=== PATIENT | female | born 1955 | race Hispanic/Latino ===

== ENCOUNTER 2017-09-19 11:09 | Observation (INO) | payer OTHER ==
[~2017-09-19] VITALS: Ht 154.9 cm; Wt 92.1 kg
--- OUTSIDE RECORDS SUMMARY | 2017-09-19 11:12 | XMS REPORT ---
Author Author [facility] Address Unknown Phone Unavailable Care Team Providers Care Hvac Service Tech Name Role Phone SADIQ BREWSTER Unavailable Unavailable Problems This patient has no known problems. Allergies, Adverse Reactions, Alerts This patient has no known allergies or adverse reactions. Medications This patient has no known medications. Results Test Description Test Time Test Comments Text Results Atomic Results Result Comments US ABDOMEN COMPLETE [place] [address] Patient Name: MELISSA LENZ MR #: [id number] : 1955 Age/Sex: 61/F Req #: [id number] Adm Physician: Ordered by: SADIQ BREWSTER MD Report #: [id number] Location: US Room/Bed: Procedure: [id number] US/US ABDOMEN COMPLETE Exam Date: Exam Time: REPORT STATUS: Signed PROCEDURE: ABDOMINAL ULTRASOUND COMPARISON: None. INDICATIONS: Chronic Hep C FINDINGS: Hilton scale and color-flow Doppler ultrasound the abdomen was performed. Liver: 13.6 cm span. Mildly coarse, hyperechoic hepatic parenchyma which may be seen with steatosis or hepatitis. No mass or intrahepatic bile duct dilatation. Main portal vein 1.0 cm, nondilated, normal hepatopetal flow. Spleen: 11.7 cm span, no splenomegaly. Pancreas: Visualized portions unremarkable. Biliary: Surgical absence of the gallbladder. Common bile duct 0.6 cm, nondilated. Right kidney: 11.0 x 5.4 x 6.2 cm. Normal parenchymal echogenicity. No hydronephrosis or contour deforming mass. Left kidney: 10.8 x 6.4 x 5.9 cm. Normal parenchymal echogenicity. No hydronephrosis. There is a hypoechoic 1.5 cm mass, with enhanced through transmission, at the medial midportion of the left kidney. Visualization is compromised by body habitus, but the appearance is compatible with a cyst. Vessels: Portions of the aorta and IVC are obscured. Visualized portions unremarkable. CONCLUSION: 1. No sonographic evidence for acute abdominal pathology. 2. Hyperechoic hepatic parenchyma likely due to steatosis. The appearance may also reflect the presence of hepatitis. 3. Left renal cyst Dictated by: Bobby Tong M.D. on 01/26/2017 at 8:58 Electronically approved by: Bobby Tong M.D. on 01/26/2017 at 8:58 Dictated By: BOBBY TONG MD 7 COPY TO: SADIQ BREWSTER MD
[2017-09-19] MEDS ORDERED: SODIUM CHLORIDE 0.9% 1000ML 1,000 ML IV STA (11:19)
[2017-09-19] MEDS ORDERED: NITROGLYCERIN 2% OINT 1 GM PKT TOP ONE (11:30)
[2017-09-19] MEDS ORDERED: ASPIRIN 325 MG TAB PO ONE (11:30)
[2017-09-19] MEDS ORDERED: NITROGLYCERIN 0.4 MG SUBL SL ONE (11:30)
[2017-09-19 12:02] LABS: BASOPHILS % 0.7 % (0.0-1.0); EOSINOPHILS # (AUTO) 0.1 (0.0-0.4); EOSINOPHILS % 1.2 % (0.0-6.0); HEMATOCRIT 43.6 % (34.2-44.1); HEMOGLOBIN 15.6 g/dL (12.0-16.0); LYMPHOCYTES # (AUTO) 1.8 (1.0-3.2); LYMPHOCYTES % 30.6 % (18.0-39.1); MEAN CORPUSCULAR HEMOGLOBIN 30.7 pg (28-32); MEAN CORPUSCULAR HGB CONC 35.8 g/dL (31-35); MEAN CORPUSCULAR VOLUME 85.8 fL (81-99); MONOCYTES # (AUTO) 0.5 (0.2-0.8); MONOCYTES % 7.8 % (4.4-11.3); NEUTROPHILS # (AUTO) 3.5 (2.1-6.9); NEUTROPHILS % 59.4 % (38.7-80.0); PLATELET COUNT 143 x10e3/uL (140-360); RED BLOOD COUNT 5.08 x10e6/uL (3.6-5.1); RED CELL DISTRIBUTION WIDTH 13.1 % (11.7-14.4)
[2017-09-19 12:12] LABS: INR 1.06
[2017-09-19 12:24] LABS: ALBUMIN 4.2 g/dL (3.5-5.0); ALBUMIN/GLOBULIN RATIO 1.1 (0.8-2.0); ANION GAP 16.7 mmol/L (8-16); CALCIUM 10.5 mg/dL (8.4-10.2); CREATININE, SERUM 1.12 mg/dL (0.57-1.11); POTASSIUM 3.7 mmol/L (3.5-5.1)
[2017-09-19 12:30] LABS: CREATINE KINASE MB 0.6 ng/mL (0-5.0)
--- NOTE | 2017-09-19 12:40 | Diagnostic Imaging Report ---
Portable chest x-ray INDICATION: Pain COMPARISON: None FINDINGS: Frontal view of the chest obtained at 1218 hours. The cardiac silhouette is normal. Mild aortic ectasia. The pulmonary vascular markings are normal. The lungs demonstrate no mass or infiltrate. The costophrenic angles are sharp. There is no pneumothorax. The osseous structures are intact and normal in morphology. IMPRESSION: No acute cardiopulmonary process Signed by: Dr. Glenn Miramontes MD on 09/19/2017 12:36 PM
[2017-09-19] MEDS ORDERED: INSULIN LISPRO 100 UNIT/1 ML 3ML VIAL SQ NR (13:00)
[2017-09-19] MEDS ORDERED: DEXTROSE 50% SYRINGE 50 ML IV PRN (13:30)
[2017-09-19] MEDS ORDERED: SODIUM CHLORIDE FLUSH 10 ML SYR INJ PRN (13:30)
[2017-09-19] MEDS ORDERED: MORPHINE SULFATE 2 MG/ML SYR IV PRN (13:30)
[2017-09-19] MEDS ORDERED: NITROGLYCERIN 0.4 MG SUBL SL PRN (13:30)
[2017-09-19] MEDS ORDERED: ONDANSETRON HCL 4 MG ORAL DISINTEGRATING TAB SL PRN (13:45)
[2017-09-19] MEDS: ENOXAPARIN SODIUM INJ 100 MG/ML SYR SC SCH (14:08)
[2017-09-19] MEDS: FAMOTIDINE 20 MG TAB PO SCH (14:08)
[2017-09-19] MEDS: INSULIN REGULAR, HUMAN 100 UNIT/1 ML 3ML VIAL SQ SCH ×2 (17:30→20:12)
[2017-09-19 17:57] VITALS: BP 147/75
[2017-09-19 18:00] VITALS: BP 147/75
[2017-09-19] MEDS: NITROGLYCERIN 2% OINT 1 GM PKT TOP SCH (18:02)
[2017-09-19 19:46] LABS: CREATINE KINASE 29 IU/L (29-168)
[2017-09-19 20:00] VITALS: BP 157/81
[2017-09-20] VITALS: BP 119/61
[2017-09-20] MEDS: NITROGLYCERIN 2% OINT 1 GM PKT TOP SCH ×2 (00:40→06:20)
[2017-09-20] MEDS: FAMOTIDINE 20 MG TAB PO SCH ×2 (01:07→13:00)
[2017-09-20] MEDS: ENOXAPARIN SODIUM INJ 100 MG/ML SYR SC SCH (01:07)
[2017-09-20 01:23] LABS: CREATINE KINASE 25 IU/L (29-168)
[2017-09-20 04:00] VITALS: BP 149/69
[2017-09-20] MEDS ORDERED: ULTRAM50 MG PO (05:42)
[2017-09-20] MEDS ORDERED: FUROSEMIDE40 MG PO (05:42)
[2017-09-20] MEDS ORDERED: HYDROCHLOROTHIA25 MG (05:42)
[2017-09-20] MEDS ORDERED: VASOTEC10 M1 (05:42)
[2017-09-20] MEDS ORDERED: NEXIUM40 MG (05:42)
[2017-09-20] MEDS ORDERED: METFORMIN HCL500 MG PO (05:42)
[2017-09-20 06:41] LABS: BASOPHILS % 0.8 % (0.0-1.0); EOSINOPHILS # (AUTO) 0.1 (0.0-0.4); EOSINOPHILS % 1.9 % (0.0-6.0); HEMATOCRIT 38.1 % (34.2-44.1); HEMOGLOBIN 13.4 g/dL (12.0-16.0); LYMPHOCYTES # (AUTO) 1.8 (1.0-3.2); MEAN CORPUSCULAR HEMOGLOBIN 30.8 pg (28-32); MEAN CORPUSCULAR HGB CONC 35.2 g/dL (31-35); MEAN CORPUSCULAR VOLUME 87.6 fL (81-99); MONOCYTES # (AUTO) 0.4 (0.2-0.8); MONOCYTES % 8.5 % (4.4-11.3); NEUTROPHILS # (AUTO) 2.4 (2.1-6.9); PLATELET COUNT 123 x10e3/uL (140-360); RED BLOOD COUNT 4.35 x10e6/uL (3.6-5.1); RED CELL DISTRIBUTION WIDTH 13.1 % (11.7-14.4)
[2017-09-20 07:07] LABS: ANION GAP 16.6 mmol/L (8-16); BLOOD UREA NITROGEN 20 mg/dL (7-26); BUN/CREATININE RATIO 23 (6-25); CALCIUM 9.9 mg/dL (8.4-10.2); CARBON DIOXIDE 26 mmol/L (22-29); CHLORIDE 97 mmol/L (98-107); CHOL/HDL RATIO 4.1 (3.0-3.6); CHOLESTEROL 177 MD/DL (0-199); CREATININE, SERUM 0.87 mg/dL (0.57-1.11); EST GLOMERULAR FILTRATION RATE > 60 ML/MIN (60-); HDL CHOLESTEROL 43 MG/DL (40-60); LDL CHOLESTEROL 104 MG/DL (60-130); POTASSIUM 3.6 mmol/L (3.5-5.1); SODIUM 136 mmol/L (136-145); TRIGLYCERIDES 152 MG/DL (0-149)
[2017-09-20 07:17] LABS: GLUCOSE 410 mg/dL (74-118)
[2017-09-20 07:36] VITALS: BP 133/66
[2017-09-20] MEDS: ASPIRIN 81 MG ENTERIC COATED PO SCH (08:04)
[2017-09-20] MEDS: INSULIN REGULAR, HUMAN 100 UNIT/1 ML 3ML VIAL SQ SCH (08:04)
[2017-09-20] MEDS ORDERED: ALPRAZOLAM 0.25 MG TAB PO PRN (09:00)
[2017-09-20] MEDS ORDERED: DEXTROSE 50% SYRINGE 50 ML IV PRN (09:00)
[2017-09-20] MEDS ORDERED: TRAMADOL HCL 50 MG TAB PO PRN (09:00)
--- NOTE | 2017-09-20 09:13 | Consultation ---
DATE OF CONSULTATION: September 20, 2017 CARDIOLOGY CONSULTATION REASON FOR CONSULTATION: New onset chest pain. HPI: This is a pleasant 62-year-old female that presented with chest pain. According to the patient, yesterday she started having chest tightness that felt like pressure located at the center of the chest on a scale of 10/10 with no radiation. She stated that the chest pain was very severe that she decided to come into the emergency room for evaluation. In the ER, she was found to have a blood sugar in the 400s, and she was admitted further care. She denied any palpitation, any diaphoresis, any headache, nausea, or vomiting. Troponin times 3 was negative. EKG with no S/T abnormalities. was normal. PAST MEDICAL HISTORY: Obesity, hep C, diabetes, hypertension, and kidney stones. PAST SURGICAL HISTORY: Kidney stone removal, cholecystectomy, and hysterectomy. FAMILY HISTORY: Positive for diabetes. SOCIAL HISTORY: No smoking. No drinking. MEDICATIONS: She was on Vasotec, Nexium, furosemide, hydrochlorothiazide, metformin, and tramadol. ALLERGIES: SHE IS ALLERGIC TO HYDROMORPHONE AND CODEINE. REVIEW OF SYSTEMS: Negative except those mentioned above. She is positive for hyperglycemia and chest pain. PHYSICAL EXAMINATION VITAL SIGNS: Temperature 98, heart rate 75, blood pressure 149/69, respirations 20, oxygen saturation 95% on room air. GENERAL: She is alert, awake and oriented times 3. HEENT: Mucous membrane moist. NECK: Supple. LUNGS: Bilateral clear to auscultation. CARDIOVASCULAR: S1 and S2 present. ABDOMEN: Soft. NEUROLOGICAL: Intact. EXTREMITIES: Bilateral lower extremities with no edema. LABS: Sodium 136, potassium 3.6, chloride 97, CO2 26, BUN 20, creatinine 0.87, glucose 14. White blood cells 4.81, hemoglobin 13.4, hematocrit 38.1, and platelets 123,000. PT 13, PTT 27, and INR 1.06. IMPRESSION 1. Hyperglycemia. 2. Chest pain. 3. Hypertension. 4. Diabetes. 5. Obesity. 6. History of hepatitis C. 7. History of gastroesophageal reflux disease. ASSESSMENT AND PLAN: Troponin times 3 was negative. She stated the chest pain is better today. Blood sugar elevated. She is getting insulin for blood sugar control. She has been counseled on diet and weight management. Get echo and Lexiscan myoview. Thank you for this consultation. DICTATED BY REGINALDO TORRE NP Job#: [id number] RI LAVONNE
[2017-09-20] MEDS: FUROSEMIDE 40 MG TAB PO SCH (09:28)
[2017-09-20] MEDS: ENALAPRIL MALEATE 10 MG TAB PO SCH ×2 (09:28→16:30)
[2017-09-20] MEDS: PANTOPRAZOLE SOD 40 MG TABEC PO SCH (09:28)
[2017-09-20] MEDS: INSULIN DETEMIR 100 UNIT/ML PEN SQ SCH ×2 (09:29→21:54)
--- NOTE | 2017-09-20 09:29 | History and Physical ---
PCP: Dr. Asmita Wiley. CHIEF COMPLAINT: Chest pain. HISTORY: A 62-year-old female with diabetes type 2, on insulin therapy. The patient also has hypertension and hepatitis C baseline. Patient came in with left-sided chest pain. Chest pain is also associated with some pain in the neck area and also in the left shoulder. The patient stated that she has been in a lot of stress lately. Her sugar is also in the 400s. The patient is otherwise stable. No nausea, no vomiting, no abdominal pain. No radiating pain to the left arm. PAST MEDICAL HISTORY: Diabetes type 2, on insulin; hypertension; reflux; and osteoarthritic pain. PAST SURGICAL HISTORY: She has kidney stone, hysterectomy, and gallbladder surgery. SOCIAL HISTORY: Patient does not smoke or use alcohol. No recreational drugs. ALLERGIES: CODEINE AND HYDROMORPHONE. HOME MEDICATIONS: List is reviewed. REVIEW OF SYSTEMS: As mentioned. PHYSICAL EXAMINATION VITAL SIGNS: Temperature is 96, blood pressure 133/66, pulse rate is 76, and respirations 18. GENERAL: The patient is not in acute distress. HEENT: Normocephalic, atraumatic. NECK: Supple grossly. PULMONARY: Clear. CARDIOVASCULAR: Regular rhythm. ABDOMEN: Soft, unremarkable. EXTREMITIES: No cyanosis or edema. NEUROLOGIC: No focal deficit. LABORATORIES: Sodium is 136, potassium 3.6, chloride 97, bicarb 26, BUN 20, creatinine 0.8, and glucose is 410. WBC is 4.8, hemoglobin 13.4, hematocrit 38.1, and platelets 123, 000. Liver enzymes otherwise unremarkable. IMPRESSIONS 1. Atypical chest pain. 2. Uncontrolled diabetes. PLAN: Discussed with the patient on diabetes care. Discussed with Dr. Neel Proctor. Echocardiogram. Stress test today. If the stress test is negative, the patient should be able to go home. Job#: [id number] CF
[2017-09-20 11:25] VITALS: BP 147/92
[2017-09-20] MEDS: INSULIN LISPRO 100 UNIT/1 ML 3ML VIAL SQ SCH ×5 (11:35→21:53)
[2017-09-20] MEDS ORDERED: REGADENOSON 0.4 MG/5 ML SYR IV ONE (12:10)
[2017-09-20 15:16] VITALS: BP 120/63
[2017-09-20 20:00] VITALS: BP 154/68
[2017-09-21 00:37] VITALS: BP 131/69
[2017-09-21] MEDS: FAMOTIDINE 20 MG TAB PO SCH (01:19)
[2017-09-21 04:43] VITALS: BP 145/72
[2017-09-21 08:18] VITALS: BP 144/75
[2017-09-21] MEDS: INSULIN LISPRO 100 UNIT/1 ML 3ML VIAL SQ SCH ×2 (08:30)
[2017-09-21] MEDS: INSULIN DETEMIR 100 UNIT/ML PEN SQ SCH (08:30)
[2017-09-21] MEDS: FUROSEMIDE 40 MG TAB PO SCH (09:05)
[2017-09-21] MEDS: ENALAPRIL MALEATE 10 MG TAB PO SCH (09:05)
[2017-09-21] MEDS: ASPIRIN 81 MG ENTERIC COATED PO SCH (09:05)
[2017-09-21] MEDS: PANTOPRAZOLE SOD 40 MG TABEC PO SCH (09:05)
--- NOTE | 2017-09-21 10:01 | Discharge Summary ---
PRIMARY CARE PHYSICIAN: Asmita Wiley MD PAVING CONTRACTOR: Dr. Javier Proctor FINAL DIAGNOSES 1. Atypical chest pain, status post negative stress test. 2. Uncontrolled diabetes. 3. Multiple chronic baseline problems. SUMMARY: The patient is a 62-year-old female with uncontrolled diabetes. The patient basically came in with atypical chest pain. She had multiple workups done. The patient is stable. Glycohemoglobin A1c is 11.5. Patient is on insulin currently. Question of compliancy. The patient is stable. Discussed with the patient regarding taking her insulin on a regular basis. She had a negative stress test. Patient is stable. Resume home medication. Resume insulin and increase insulin as adjustment. She will follow up with her family doctor, Dr. Asmita Wiley, next week for adjustment of her medication. Patient is stable and discharged home today. Job#: [id number]
[2017-09-30] MEDS ORDERED: MORPHINE SULFATE 2 MG/ML SYR IV PRN (13:30)
== END 2017-09-21 10:55 | disposition home or self-care (01) ==
LOC: ER 11:09 → ERHOLD 15:19 → IMCU 15:26
PROVIDERS: ADMIT Internal Medicine; ATTEND Internal Medicine
DX: R07.89 Other chest pain (principal); I10 Essential (primary) hypertension; E11.65 Type 2 diabetes mellitus with hyperglycemia; Z79.4 Long term (current) use of insulin; K21.9 Gastro-esophageal reflux disease without esophagitis; B19.20 Unspecified viral hepatitis C without hepatic coma; Z88.5 Allergy status to narcotic agent; E66.9 Obesity, unspecified; Z68.37 Body mass index [BMI] 37.0-37.9, adult
CPT/HCPCS: 36415 ×3; 71045; 78452; 80048; 80053; 80061; 82550 ×2; 82553 ×2; 82948 ×3; 83036; 83880; 84443; 84484 ×2; 85025 ×2; 85610; 85730; 93005; 93017; 93306; 99284; A9502; G0378 ×3; J1650 ×2; J7030

== ENCOUNTER 2019-07-15 10:48 | Emergency (ER) | payer OTHER ==
[~2019-07-15] VITALS: Ht 154.9 cm; Wt 92.1 kg
[~2019-07-15 10:48] MED LIST: FUROSEMIDE40 MG PO; HYDROCHLOROTHIA25 MG; METFORMIN HCL500 MG PO; NEXIUM40 MG; ULTRAM50 MG PO; VASOTEC10 M1
[2019-07-15] MEDS ORDERED: HYDRALAZINE HCL 20 MG/ML VIAL ONE (11:12)
[2019-07-15 11:27] LABS: BASOPHILS % 0.7 % (0.0-1.0); EOSINOPHILS # (AUTO) 0.1 (0.0-0.4); EOSINOPHILS % 2.2 % (0.0-6.0); HEMATOCRIT 35.2 % (34.2-44.1); HEMOGLOBIN 11.7 g/dL (12.0-16.0); LYMPHOCYTES # (AUTO) 1.4 (1.0-3.2); MEAN CORPUSCULAR HEMOGLOBIN 29.8 pg (28-32); MEAN CORPUSCULAR HGB CONC 33.2 g/dL (31-35); MEAN CORPUSCULAR VOLUME 89.8 fL (81-99); MONOCYTES # (AUTO) 0.4 (0.2-0.8); MONOCYTES % 8.4 % (4.4-11.3); NEUTROPHILS # (AUTO) 2.3 (2.1-6.9); NEUTROPHILS % 54.2 % (38.7-80.0); PLATELET COUNT 115 x10e3/uL (140-360); RED BLOOD COUNT 3.92 x10e6/uL (3.6-5.1); RED CELL DISTRIBUTION WIDTH 14.1 % (11.7-14.4)
[2019-07-15] MEDS: HYDRALAZINE HCL 20 MG/ML VIAL IV STA (11:30)
[2019-07-15 11:33] LABS: CLARITY,URINE CLEAR (CLEAR); COLOR,URINE YELLOW (YELLOW)
[2019-07-15 11:34] LABS: KETONES,URINE NEGATIVE (NEGATIVE); LEUKOCYTE ESTERASE ,URINE NEGATIVE (NEGATIVE); NITRITE,URINE NEGATIVE (NEGATIVE); PROTEIN,URINE DIPSTICK 1+ (NEGATIVE)
[2019-07-15 11:35] LABS: BACTERIA,URINE RARE /HPF; BILIRUBIN,URINE NEGATIVE (NEGATIVE); EPITHELIAL CELLS,URINE FEW /LPF; URINE UROBILINOGEN 0.2 mg/dL (0.2 - 1)
[2019-07-15 11:42] LABS: INR 0.89; PROTHROMBIN TIME 12.6 seconds (11.9-14.5)
[2019-07-15 11:43] LABS: PARTIAL THROMBOPLASTIN TIME 30.9 seconds (23.8-35.5)
[2019-07-15 11:52] LABS: ALANINE AMINOTRANSFERASE 25 IU/L (0-55); ALBUMIN 3.6 g/dL (3.5-5.0); ALBUMIN/GLOBULIN RATIO 1.1 (0.8-2.0); ALKALINE PHOSPHATASE 104 IU/L (40-150); BLOOD UREA NITROGEN 15 mg/dL (7-26); BUN/CREATININE RATIO 16 (6-25); CALCIUM 9.7 mg/dL (8.4-10.2); CARBON DIOXIDE 28 mmol/L (22-29); CHLORIDE 109 mmol/L (98-107); CREATINE KINASE 76 IU/L (29-168); CREATININE, SERUM 0.91 mg/dL (0.57-1.11); EST GLOMERULAR FILTRATION RATE > 60 ML/MIN (60-); GLUCOSE 165 mg/dL (74-118); SODIUM 144 mmol/L (136-145)
--- NOTE | 2019-07-15 12:19 | Diagnostic Imaging Report ---
EXAMINATION: PA and lateral views of the chest. COMPARISON: Portable chest 09/19/2017 CLINICAL HISTORY: Chest pain DISCUSSION: Lines/tubes: None. Lungs: The lungs are well inflated. Linear subsegmental atelectasis in the right midlung. There is no evidence of pneumonia or pulmonary edema. Pleura: There is no pleural effusion or pneumothorax. Heart and mediastinum: Cardiomediastinal silhouette is unremarkable. Pulmonary vasculature is normal. Bones and soft tissues: No acute bony abnormalities. Degenerative changes in the thoracic spine IMPRESSION: No acute cardiopulmonary abnormalities. Signed by: Dr. Kasi Delatorre M.D. on 07/15/2019 12:16 PM
--- NOTE | 2019-07-15 12:20 | Diagnostic Imaging Report ---
Exam: Right Ankle Series. History: Right ankle pain Comparison: None. DISCUSSION: 3 views of the right ankle. There is normal bone mineralization. No evidence of acute, displaced fracture or dislocation. Ankle mortise is preserved.No osteochondral lesion. Large anterior and posterior calcaneal enthesophytes. Moderate soft tissue swelling surrounding the ankle. IMPRESSION: 1. Moderate soft tissue swelling in the ankle without acute underlying bony abnormality. The staff physician below has personally reviewed this exam on the date of dictation. Signed by: Dr. Kasi Delatorre M.D. on 07/15/2019 12:17 PM
--- NOTE | 2019-07-15 12:21 | Diagnostic Imaging Report ---
EXAMINATION: Right Hip Films with AP pelvis CLINICAL HISTORY:Right hip pain COMPARISON: None. DISCUSSION: The bones are well-mineralized. No acute, displaced fractures or dislocations. Joint spaces are relatively well-preserved. No gross soft tissue abnormalities. No osteolytic or osteoblastic lesions. Vascular calcifications. IMPRESSION: 1. No acute abnormality. Signed by: Dr. Kasi Delatorre M.D. on 07/15/2019 12:18 PM
--- NOTE | 2019-07-15 12:22 | Diagnostic Imaging Report ---
Exam: Right foot series, 3 views. Clinical History: Right foot pain Comparison: None. Findings: 3 views of the right foot. There is normal bone mineralization. Negative for acute, displaced fracture or dislocation. Joint spaces are relatively well preserved. Large anterior and posterior calcaneal enthesophytes moderate soft tissue swelling in the dorsal aspect of the foot. Impression: 1. Moderate soft tissue swelling in the dorsal aspect of the foot. No acute bony abnormality. Signed by: Dr. Kasi Delatorre M.D. on 07/15/2019 12:19 PM
== END 2019-07-15 13:00 | disposition home or self-care (01) ==
LOC: ER 10:48
DX: S96.911A Strain of unspecified muscle and tendon at ankle and foot level, right foot, initial encounter (principal); M25.551 Pain in right hip; R60.9 Edema, unspecified; M79.89 Other specified soft tissue disorders; W19.XXXA Unspecified fall, initial encounter; N30.91 Cystitis, unspecified with hematuria; I48.91 Unspecified atrial fibrillation; I50.9 Heart failure, unspecified; J44.9 Chronic obstructive pulmonary disease, unspecified
CPT/HCPCS: 36415; 71046; 73502; 73610; 73630; 80053; 81001; 82550; 82553; 83880; 84484; 85025; 85610; 85730; 93005; 93971; 99284; J0360

== ENCOUNTER 2020-03-17 09:14 | Emergency (ER) | payer OTHER ==
[~2020-03-17] VITALS: Ht 154.9 cm; Wt 92.1 kg
[2020-03-17] MEDS ORDERED: PANTOPRAZOLE 40 MG 10ML VIAL IV NR (09:31)
[2020-03-17] MEDS ORDERED: MORPHINE SULFATE 2 MG/ML SYR 1ML IV NR (09:31)
[2020-03-17] MEDS ORDERED: ONDANSETRON HCL INJ 2MG/ML 2ML 2 MG/ML VIAL IV NR (09:31)
--- OUTSIDE RECORDS SUMMARY | 2020-03-17 09:37 | XMS REPORT | Continuity of Care Document ---
Author Author [facility] Organization [facility] Address [address] [place] [address] Phone Unavailable Care Team Providers Care High Heel Builder Name Role Phone NONSTAFF PCP Unavailable OPAL, Carlos A SEGOVIA Attphys Unavailable PAINTERNÉSTOR Attphys Unavailable OJEAS, S SADIQ Attphys Unavailable PAINTER, NÉSTOR Admphys Unavailable Payers Payer Name Policy Type Policy Number Effective Date Expiration Date Areli Hough [id number] 2017 00:00:00 [facility] Problems This patient has no known problems. Allergies, Adverse Reactions, Alerts Allergy Name Allergy Type Status Severity Reaction(s) Onset Date Inacti ve Date Treating Clinician Comments Source Iodine Allergy to Substance Active 2019-07-15 00:00:00 [facility] Hydromorphone Allergy to Substance Active 2017-09-19 00:00: 00 [facility] CODIENE Allergy to Substance Active Severe 2017-09-19 00:00:00 [facility] Medications Ordered Medication Name Filled Medication Name Start Date Stop Da te Current Medication? Ordering Clinician Indication Dosage Frequency Signature (SIG) Comments Components Source Enalapril Maleate (Vasotec) 10 Mg Tablet Enalapril Mal eate (Vasotec) 10 Mg Tablet Yes 20 Twice A Day [facility] Esomeprazole Magnesium (Nexium) 40 Mg Capsule.dr Leblanc prazole Magnesium (Nexium) 40 Mg Capsule. Yes Daily [facility] Furosemide 40 Mg Tablet Furosemide 40 Mg Tablet Yes 40 Daily [facility] Hydrochlorothiazide 25 Mg Tablet Hydrochlorothiazide 25 Mg Tablet Yes 12.5 Daily [facility] Metformin Hcl 500 Mg Tablet Metformin Hcl 500 Mg Tablet Yes 1000 Twice Daily With Meals [facility] Tramadol Hcl (Ultram) 50 Mg Tablet Tramadol Hcl (Ultram) 50 Mg Tablet Yes 50 Every 8 Hours as needed for Pain [facility] Procedures Procedure Date / Time Performed Performing Clinician Sour e X-ray of chest, two views 2019-07-15 00:00:00 JOHNATHAN ALBARRAN CH [facility] Encounters Start Date/Time End Date/Time Encounter Type Admission Type Attendi [facility] Care Department Encounter ID Source 2019-07-15 10:48:00 2019-07-15 13:00:00 Departed Emergency Room 1 LUCA JOSEPH [facility] [id number] [facility] 2017-09-19 15:19:00 2017-09-21 10:55:00 Discharged Inpatient (obs) 1 NÉSTOR PAINTER [facility] [id number] [facility] 2017-01-26 07:20:00 2017-01-26 07:20:00 Registered Clinic SADIQ [facility] [id number] [facility] Results Test Description Test Time Test Comments Results Result Comments Source FOOT RIGHT COMPLETE 2019-07-15 12:18:00 [place] [address] Patient Name: MELISSA LENZ MR #: [id number] : 1955 Age/Sex: 64/F Req #: [id number] Adm Physician: Ordered by: JOHNATHAN ALBARRAN LADLE REPAIRER Report #: [id number] Location: ER Room/Bed: Procedure: [id number] DX/FOOT RIGHT COMPLETE Exam Date: 07/15/19 Exam Time: 1100 REPORT STATUS: Signed Exam: Right foot series, 3 views. Clinical History: Right foot pain Comparison: None. Findings: 3 views of the right foot. There is normal bone mineralization. Negative for acute, displaced fracture or dislocation. Joint spaces are relatively well preserved. Large anterior and posterior calcaneal enthesophytes moderate soft tissue swelling in the dorsal aspect of the foot. Impression: 1. Moderate soft tissue swelling in the dorsal aspect of the foot. No acute bony abnormality. Signed by: Dr. Kasi Jones M.D. on 07/15/2019 12:19 PM Dictated By: KASI JONES MD 121 Transcribed By: BOBBY on 07/15/191218 COPY TO: JOHNATHAN ALBARRAN NP HIP RIGHT 2-3 VW (+/- PELVIS) 2019-07-15 12:17:00 [place] [address] Patient Name: MELISSA LENZ MR #: [id number] : 1955 Age/Sex: 64/F Req #: [id number] Adm Physician: Ordered by: JOHNATHAN ALBARRAN NP Report #: [id number] Location: ER Room/Bed: Procedure: [id number] DX/HIP RIGHT 2-3 VW (+/- PELVIS) Exam Date: Exam Time: REPORT STATUS: Signed EXAMINATION: Right Hip Films with AP pelvis CLINICAL HISTORY:Right hip pain COMPARISON: None. DISCUSSION: The bones are well-mineralized. No acute, displaced fractures or dislocations. Joint spaces are relatively well-preserved. No gross soft tissue abnormalities. No osteolytic or osteoblastic lesions. Vascular calcifications. IMPRESSION: 1. No acute abnormality. Signed by: Dr. Kasi Jones M.D. on 07/15/2019 12:18 PM Dictated By: KASI JONES MD 17 Transcribed By: BOBBY on 07/15/191217 COPY TO: JOHNATHAN ALBARRAN NP ANKLE 3 + VIEWS RIGHT 2019-07-15 12:16:00 [place] [address] Patient Name: MELISSA LENZ MR #: [id number] : 1955 Age/Sex: 64/F Req #: [id number] Adm Physician: Ordered by: JOHNATHAN ALBARRAN NP Report #: [id number] Location: ER Room/Bed: Procedure: [id number] DX/ANKLE 3 + VIEWS RIGHT Exam Date: 07/15/19 Exam Time: 1100 REPORT STATUS: Signed Exam: Right Ankle Series. History: Right ankle pain Comparison: None. DISCUSSION: 3 views of the right ankle. There is normal bone mineralization. No evidence of acute, displaced fracture or dislocation. Ankle mortise is preserved.No osteochondral lesion. Large anterior and posterior calcaneal enthesophytes. Moderate soft tissue swelling surrounding the ankle. IMPRESSION: 1. Moderate soft tissue swelling in the ankle without acute underlying bony abnormality. The staff physician below has personally reviewed this exam on the date of dictation. Signed by: Dr. Kasi Jones M.D. on 07/15/2019 12:17 PM Dictated By: KASI JONES MD 16 Transcribed By: BOBBY on 07/15/191216 COPY TO: JOHNATHAN ALBARRAN NP CHEST 2 VIEWS 2019-07-15 12:15:00 [place] [address] Patient Name: MELISSA LENZ MR #: [id number] : 1955 Age/Sex: 64/F Req #: [id number] Adm Physician: Ordered by: JOHNATHAN ALBARRAN NP Report #: [id number] Location: ER Room/Bed: Procedure: [id number] DX/CHEST 2 VIEWS Exam Date: 07/15/19 Exam Time: 1100 REPORT STATUS: Signed EXAMINATION: PA and lateral views of the chest. COMPARISON: Portable chest 09/19/2017 CLINICAL HISTORY: Chest pain DISCUSSION: Lines/tubes: None. Lungs: The lungs are well inflated. Linear subsegmental atelectasis in the right midlung. There is no evidence of pneumonia or pulmonary edema. Pleura: There is no pleural effusion or pneumothorax. Heart and mediastinum: Cardiomediastinal silhouette is unremarkable. Pulmonary vasculature is normal. Bones and soft tissues: No acute bony abnormalities. Degenerative changes in the thoracic spine IMPRESSION: No acute cardiopulmonary abnormalities. Signed by: Dr. Kasi Jones M.D. on 07/15/2019 12:16 PM Dictated By: KASI JONES MD 15 Transcribed By: BOBBY on 07/15/19 1216 COPY TO: JOHNATHAN ALBARRAN NP B-Type Natriuretic Peptide 2019-07-15 12:01:00 Test Item B-Type Natriuretic Peptide (test code = 59179-4) 44.9 0-100 [facility] [id number] 12:01:00* Test Item Value Reference Range Interpretation Comments Creatine Kinase MB (test code = 93410-1) 1.90 0-5.0 [facility]Troponin [id number] 12:01:00* Test Item Value Reference Range Interpretation Comments Troponin I (test code = JTS0885) 0.008 0-0.300 [facility] Zskba4305-77-48 11:53:00* Test Item Value Reference Range Interpretation Comments Sodium Level (test code = 2951-2) 144 136-145 [facility]iePotassium Rznns8496-62-36 11:53:00* Test Item Value Reference Range Interpretation Comments Potassium Level (test code = 2823-3) 3.0 3.5-5.1 L [facility]ieChloride Iykye7209-33-05 11:53:00* Test Item Value Reference Range Interpretation Comments Chloride Level (test code = 2075-0) 109 98-107 H [facility]ieCarbon Dioxide Mxeoo1569-33-04 11:53:00* Test Item Value Reference Range Interpretation Comments Carbon Dioxide Level (test code = 2028-9) 28 22-29 [facility]ieAnion Dks9484-16-22 11:53:00* Test Item Value Reference Range Interpretation Comments Anion Gap (test code = 70944-3) 10.0 8-16 [facility]ieBlood Urea Cghbdtug1585-77-08 11:53:00* Test Item Value Reference Range Interpretation Comments Blood Urea Nitrogen (test code = 3094-0) 15 7-26 [facility]ieCreatinine2020-03-14 11:53:00* Test Item Value Reference Range Interpretation Comments Creatinine (test code = 2160-0) 0.91 0.57-1.11 [facility]ieBUN/Creatinine Pefcb4558-01-60 11:53:00* Test Item Value Reference Range Interpretation Comments BUN/Creatinine Ratio (test code = 3097-3) 16 6-25 [facility]ieEstimat Glomerular Filtration Rate 2019-07-15 11:53:00* Test Item Value Reference Range Interpretation Comments Estimat Glomerular Filtration Rate (test code = 373187757) > 60 >60 Ranges were taken from the National Kidney Disease Education Program and the [facility] literature.Reference ranges:60 or greater: Bvbcyu51-11 ( for 3 consecutive months): Chronic kidney disease 15 or less: Kidney failureBaylor Scott & White Medical Center – WaxahachieGlucose Zonvy3895-07-97 11:53:00* Test Item Value Reference Range Interpretation Comments Glucose Level (test code = DQR6020) 165 74-118 H [facility]ieCalcium Fshbf6910-35-55 11:53:00* Test Item Value Reference Range Interpretation Comments Calcium Level (test code = 56214-5) 9.7 8.4-10.2 [facility]ieTotal Vkohufrqt0870-24-76 11:53:00* Test Item Value Reference Range Interpretation Comments Total Bilirubin (test code = 1975-2) 0.7 0.2-1.2 [facility]ieAspartate Amino Transf (AST/SGOT) 2019-07-15 11:53:00* Test Item Value Reference Range Interpretation Comments Aspartate Amino Transf (AST/SGOT) (test code = Aspartate Amino Transf (AST/SGOT)) 26 5-34 [facility]ieAlanine Aminotransferase (ALT/SGPT) 2019-07-15 11:53:00* Test Item Value Reference Range Interpretation Comments Alanine Aminotransferase (ALT/SGPT) (test code = 1742-6) 25 0-55 [facility]ieTotal Jtnekys2106-82-07 11:53:00* Test Item Value Reference Range Interpretation Comments Total Protein (test code = 2885-2) 7.0 6.5-8.1 [facility]ieAlbumin2020-03-14 11:53:00* Test Item Value Reference Range Interpretation Comments Albumin (test code = 1751-7) 3.6 3.5-5.0 [facility]ieGlobulin2020-03-14 11:53:00* Test Item Value Reference Range Interpretation Comments Globulin (test code = 23701-5) 3.4 2.3-3.5 [facility]ieAlbumin/Globulin Bevnw7430-08-39 11:53:00 * Test Item Value Reference Range Interpretation Comments Albumin/Globulin Ratio (test code = 1759-0) 1.1 0.8-2.0 [facility]ieAlkaline Gfteagsktsj6821-89-76 11:53:00* Test Item Value Reference Range Interpretation Comments Alkaline Phosphatase (test code = 6768-6) 104 40-150 [facility]ieCreatine Tpxblu0496-58-09 11:53:00* Test Item Value Reference Range Interpretation Comments Creatine Kinase (test code = 2157-6) 76 29-168 [facility]ieProthrombin Jvxm3975-84-29 11:48:00* Test Item Value Reference Range Interpretation Comments Prothrombin Time (test code = 5902-2) 12.6 11.9-14.5 [facility]ieProthromb Time International Ratio 2019-07-15 11:48:00* Test Item Value Reference Range Interpretation Comments Prothromb Time International Ratio (test code = 6301-6) 0.89 Oral Anticoagulant Therapy INR Values:1. Low Intensity Therapy 1.5 - 2.02 . Moderate Intensity Therapy 2.0 - 3.03. High Intensity Therapy(1) 2.5 - 3. 54. High Intensity Therapy(2) 3.0 - 4.05. Panic Value INR > 5.0 [facility]achieActivated Partial Thromboplast Time 2019-07-15 11:48:00* Test Item Value Reference Range Interpretation Comments Activated Partial Thromboplast Time (test code = 54878-4) 30.9 23.8-35.5 [facility]iePlatelet Morphology Rpkekmw1984-77-78 11:43:00* Test Item Value Reference Range Interpretation Comments Platelet Morphology Comment (test code = 65102-6) NO EDTA PLT CLUMP SEEN [facility]achieUrine Qrqzr8108-37-48 11:35:00* Test Item Value Reference Range Interpretation Comments Urine Color (test code = 5778-6) YELLOW YELLOW [facility]ieUrine Bnaynmh4599-30-05 11:35:00* Test Item Value Reference Range Interpretation Comments Urine Clarity (test code = 01039-5) CLEAR CLEAR [facility]achieUrine Specific Ghtivxl1056-67-89 11:35:00 * Test Item Value Reference Range Interpretation Comments Urine Specific Boissevain (test code = 5811-5) 1.015 1.010-1.02 5 [facility]achieUrine uR8139-20-85 11:35:00* Test Item Value Reference Range Interpretation Comments Urine pH (test code = 44066-0) 5.5 5-7 [facility]ieUrine Leukocyte Trrplgcn5654-06-71 11:35:00* Test Item Value Reference Range Interpretation Comments Urine Leukocyte Esterase (test code = 5799-2) NEGATIVE NEGATIVE [facility] Tgtasxc7756-11-56 11:35:00* Test Item Value Reference Range Interpretation Comments Urine Nitrite (test code = 83746-3) NEGATIVE NEGATIVE [facility] Zabqmft6663-88-93 11:35:00* Test Item Value Reference Range Interpretation Comments Urine Protein (test code = 5804-0) 1+ NEGATIVE H [facility] Glucose (UA)2019-07-15 11:35:00* Test Item Value Reference Range Interpretation Comments Urine Glucose (UA) (test code = 2349-9) NEGATIVE NEGATIVE [facility] Oqpuhvx5376-38-34 11:35:00* Test Item Value Reference Range Interpretation Comments Urine Ketones (test code = 72743-9) NEGATIVE NEGATIVE [facility] Opvposdapaoz1663-36-11 11:35:00* Test Item Value Reference Range Interpretation Comments Urine Urobilinogen (test code = 22577-4) 0.2 0.2-1 [facility]ieUrine Gispxszfo6348-23-91 11:35:00* Test Item Value Reference Range Interpretation Comments Urine Bilirubin (test code = 1978-6) NEGATIVE NEGATIVE [facility]achieUrine Cwdev7825-27-87 11:35:00* Test Item Value Reference Range Interpretation Comments Urine Blood (test code = 40456-7) TRACE NEGATIVE H [facility]achieUrine CZI0027-18-20 11:35:00* Test Item Value Reference Range Interpretation Comments Urine WBC (test code = 5821-4) 11-20 0-5 H [facility]achieUrine SIC8284-37-12 11:35:00* Test Item Value Reference Range Interpretation Comments Urine RBC (test code = 26167-1) 11-20 0-5 H [facility]ieUrine Zqejzwkz4582-02-08 11:35:00* Test Item Value Reference Range Interpretation Comments Urine Bacteria (test code = 28774-1) RARE NONE [facility]achieUrine Epithelial Feofd8933-34-21 11:35:00 * Test Item Value Reference Range Interpretation Comments Urine Epithelial Cells (test code = 88660-3) FEW NONE [facility]achieWhite Blood Gmrpm1640-30-18 11:32:00* Test Item Value Reference Range Interpretation Comments White Blood Count (test code = 6690-2) 4.18 4.8-10.8 L [facility]achieRed Blood Rokvh4048-60-89 11:32:00* Test Item Value Reference Range Interpretation Comments Red Blood Count (test code = 789-8) 3.92 3.6-5.1 [facility]ieHemoglobin2020-03-14 11:32:00* Test Item Value Reference Range Interpretation Comments Hemoglobin (test code = 54583-6) 11.7 12.0-16.0 L [facility]ieHematocrit2020-03-14 11:32:00* Test Item Value Reference Range Interpretation Comments Hematocrit (test code = 4544-3) 35.2 34.2-44.1 [facility]achieMean Corpuscular Hypkpo4879-30-80 11:32:00* Test Item Value Reference Range Interpretation Comments Mean Corpuscular Volume (test code = 787-2) 89.8 81-99 [facility]achieMean Corpuscular Mswjwuzkjl0810-47-41 11:32:00* Test Item Value Reference Range Interpretation Comments Mean Corpuscular Hemoglobin (test code = 785-6) 29.8 28-32 [facility]achieMean Corpuscular Hemoglobin Concent 2019-07-15 11:32:00* Test Item Value Reference Range Interpretation Comments Mean Corpuscular Hemoglobin Concent (test code = 786-4) 33.2 31-35 [facility]achieRed Cell Distribution Wiuvg8190-54-15 11:32:00* Test Item Value Reference Range Interpretation Comments Red Cell Distribution Width (test code = 76401-7) 14.1 11.7 -14.4 [facility]iePlatelet Qvxvs1219-77-21 11:32:00* Test Item Value Reference Range Interpretation Comments Platelet Count (test code = 777-3) 115 140-360 L [facility]achieNeutrophils (%) (Auto)2019-07-15 11:32:00 * Test Item Value Reference Range Interpretation Comments Neutrophils (%) (Auto) (test code = 52608-4) 54.2 38.7-80.0 [facility]ieLymphocytes (%) (Auto)2019-07-15 11:32:00 * Test Item Value Reference Range Interpretation Comments Lymphocytes (%) (Auto) (test code = 736-9) 34.0 18.0-39.1 [facility]ieMonocytes (%) (Auto)2019-07-15 11:32:00* Test Item Value Reference Range Interpretation Comments Monocytes (%) (Auto) (test code = 5905-5) 8.4 4.4-11.3 [facility]ieEosinophils (%) (Auto)2019-07-15 11:32:00 * Test Item Value Reference Range Interpretation Comments Eosinophils (%) (Auto) (test code = 713-8) 2.2 0.0-6.0 [facility]ieBasophils (%) (Auto)2019-07-15 11:32:00* Test Item Value Reference Range Interpretation Comments Basophils (%) (Auto) (test code = 706-2) 0.7 0.0-1.0 [facility]ieIM GRANULOCYTES %2019-07-15 11:32:00* Test Item Value Reference Range Interpretation Comments IM GRANULOCYTES % (test code = IM GRANULOCYTES %) 0.5 0.0- 1.0 [facility]ieNeutrophils # (Auto)2019-07-15 11:32:00* Test Item Value Reference Range Interpretation Comments Neutrophils # (Auto) (test code = 751-8) 2.3 2.1-6.9 [facility]ieLymphocytes # (Auto)2019-07-15 11:32:00* Test Item Value Reference Range Interpretation Comments Lymphocytes # (Auto) (test code = 11771-0) 1.4 1.0-3.2 [facility]ieMonocytes # (Auto)2019-07-15 11:32:00* Test Item Value Reference Range Interpretation Comments Monocytes # (Auto) (test code = 742-7) 0.4 0.2-0.8 [facility]ieEosinophils # (Auto)2019-07-15 11:32:00* Test Item Value Reference Range Interpretation Comments Eosinophils # (Auto) (test code = 711-2) 0.1 0.0-0.4 [facility]ieBasophils # (Auto)2019-07-15 11:32:00* Test Item Value Reference Range Interpretation Comments Basophils # (Auto) (test code = 704-7) 0.0 0.0-0.1 [facility]achieAbsolute Immature Granulocyte (auto 2019-07-15 11:32:00* Test Item Value Reference Range Interpretation Comments Absolute Immature Granulocyte (auto (srini t code = Absolute Immature Granulocyte (auto) 0.02 0-0.1 [facility]achieBedside Izflodq8286-11-70 07:32:00* Test Item Value Reference Range Interpretation Comments Bedside Glucose (test code = 06317-9) 222 70-120 H Meter ID: [id number] Scott & [facility] Center – WaxahachieThyroid Stimulating Hormone (TSH)2017-09-20 10:13:00* Test Item Value Reference Range Interpretation Comments Thyroid Stimulating Hormone (TSH) (test code = 08304-7) 0.921 0.350-4.940 [facility]achieHemoglobin A1c Xhavgdj9682-41-16 09:31:00 * Test Item Value Reference Range Interpretation Comments Hemoglobin A1c Percent (test code = Hemoglobin A1c Percent) 11.5 4.0-7.0 [facility] Vjnrk8884-77-93 07:17:00* Test Item Value Reference Range Interpretation Comments Sodium Level (test code = 2951-2) 136 136-145 [facility]achiePotassium Himvz2958-24-32 07:17:00* Test Item Value Reference Range Interpretation Comments Potassium Level (test code = 2823-3) 3.6 3.5-5.1 [facility] W[facility]achieChloride Ygdxe6643-49-70 07:17:00* Test Item Value Reference Range Interpretation Comments Chloride Level (test code = 2075-0) 97 98-107 L [facility] WaxahachieCarbon Dioxide Momte7803-01-54 07:17:00* Test Item Value Reference Range Interpretation Comments Carbon Dioxide Level (test code = 2028-9) 26 22-29 [facility] Wax[facility]achieAnion Vnp5875-80-30 07:17:00* Test Item Value Reference Range Interpretation Comments Anion Gap (test code = 06814-3) 16.6 8-16 H [facility]achieBlood Urea Kwieqzsy4774-46-68 07:17:00* Test Item Value Reference Range Interpretation Comments Blood Urea Nitrogen (test code = 3094-0) 20 7-26 [facility]achieCreatinine2018-05-21 07:17:00* Test Item Value Reference Range Interpretation Comments Creatinine (test code = 2160-0) 0.87 0.57-1.11 [facility]achieBUN/Creatinine Lqlem0370-70-90 07:17:00* Test Item Value Reference Range Interpretation Comments BUN/Creatinine Ratio (test code = 3097-3) 23 6-25 [facility] WaxahachieEstimat Glomerular Filtration Rate 2017-09-20 07:17:00* Test Item Value Reference Range Interpretation Comments Estimat Glomerular Filtration Rate (test code = 82515-1) 60- >60 Ranges were taken from the National Kidney Disease Education Program and the [facility] Kidney Foundation literature.Reference ranges:60 or greater: Rvxqno84-77 ( for 3 consecutive months): Chronic kidney disease 15 or less: Kidney failureBaylor Scott & White Medical Center – WaxahachieGlucose Skcif3863-48-04 07:17:00* Test Item Value Reference Range Interpretation Comments Glucose Level (test code = LZH1584) 410 74-118 HH Results called to MATTI Rivera at 0715 on 09/20/17 by Charline Meyer. RB [place].[facility] WaxahachieCalcium Gvjgr2825-54-86 07:17:00* Test Item Value Reference Range Interpretation Comments Calcium Level (test code = 79369-9) 9.9 8.4-10.2 [facility] W[facility]ahachieTriglycerides Qrojh2217-85-24 07:17:00* Test Item Value Reference Range Interpretation Comments Triglycerides Level (test code = 2571-8) 152 0-149 H [facility]achieCholesterol Fpfts5109-78-74 07:17:00* Test Item Value Reference Range Interpretation Comments Cholesterol Level (test code = 2093-3) 177 0-199 Less than 200 mg/dL Low Uvur831 - 239 mg/dL Borderline Vara962 m g/dl and greater High Risk [facility] WaxahachieLDL Kiulkicxywq9777-43-91 07:17:00* Test Item Value Reference Range Interpretation Comments LDL Cholesterol (test code = 2089-1) 104 60-130 [facility] WaxahachieHDL Dfvutainhdf6538-17-05 07:17:00* Test Item Value Reference Range Interpretation Comments HDL Cholesterol (test code = 2085-9) 43 40-60 [facility]ieCholesterol/HDL [id number] 07:17:00 * Test Item Value Reference Range Interpretation Comments Cholesterol/HDL Ratio (test code = 9830-1) 4.1 3.0-3.6 H [facility]ieWhite Blood [id number] 06:44:00* Test Item Value Reference Range Interpretation Comments White Blood Count (test code = 6690-2) 4.81 4.8-10.8 [facility]ieRed Blood [id number] 06:44:00* Test Item Value Reference Range Interpretation Comments Red Blood Count (test code = 789-8) 4.35 3.6-5.1 [facility]Hemoglobin2018-05-21 06:44:00* Test Item Value Reference Range Interpretation Comments Hemoglobin (test code = 40080-7) 13.4 12.0-16.0 [facility]ieHematocrit2018-05-21 06:44:00* Test Item Value Reference Range Interpretation Comments Hematocrit (test code = 4544-3) 38.1 34.2-44.1 [facility]ieMean Corpuscular Yghqxo4222-08-22 06:44:00* Test Item Value Reference Range Interpretation Comments Mean Corpuscular Volume (test code = 787-2) 87.6 81-99 [facility]Mean Corpuscular Ccaflxwlhb2734-90-00 06:44:00* Test Item Value Reference Range Interpretation Comments Mean Corpuscular Hemoglobin (test code = 785-6) 30.8 28-32 [facility]ieMean Corpuscular Hemoglobin Concent 2017-09-20 06:44:00* Test Item Value Reference Range Interpretation Comments Mean Corpuscular Hemoglobin Concent (test code = 786-4) 35.2 31-35 H [facility]ieRed Cell Distribution [id number] 06:44:00* Test Item Value Reference Range Interpretation Comments Red Cell Distribution Width (test code = 91863-4) 13.1 11.7 -14.4 [facility]iePlatelet Fxxdx2749-28-37 06:44:00* Test Item Value Reference Range Interpretation Comments Platelet Count (test code = 777-3) 123 140-360 L [facility]ieNeutrophils (%) (Auto)2017-09-20 06:44:00 * Test Item Value Reference Range Interpretation Comments Neutrophils (%) (Auto) (test code = 02057-0) 50.0 38.7-80.0 [facility]ieLymphocytes (%) (Auto)2017-09-20 06:44:00 * Test Item Value Reference Range Interpretation Comments Lymphocytes (%) (Auto) (test code = 736-9) 38.0 18.0-39.1 [facility]Monocytes (%) (Auto)2017-09-20 06:44:00* Test Item Value Reference Range Interpretation Comments Monocytes (%) (Auto) (test code = 5905-5) 8.5 4.4-11.3 [facility]Eosinophils (%) (Auto)2017-09-20 06:44:00 * Test Item Value Reference Range Interpretation Comments Eosinophils (%) (Auto) (test code = 713-8) 1.9 0.0-6.0 [facility]Basophils (%) (Auto)2017-09-20 06:44:00* Test Item Value Reference Range Interpretation Comments Basophils (%) (Auto) (test code = 706-2) 0.8 0.0-1.0 [facility]ieIM GRANULOCYTES %2017-09-20 06:44:00* Test Item Value Reference Range Interpretation Comments IM GRANULOCYTES % (test code = IM GRANULOCYTES %) 0.8 0.0- 1.0 [facility]ieNeutrophils # (Auto)2017-09-20 06:44:00* Test Item Value Reference Range Interpretation Comments Neutrophils # (Auto) (test code = 751-8) 2.4 2.1-6.9 [facility]ieLymphocytes # (Auto)2017-09-20 06:44:00* Test Item Value Reference Range Interpretation Comments Lymphocytes # (Auto) (test code = 18213-4) 1.8 1.0-3.2 [facility]Monocytes # (Auto)2017-09-20 06:44:00* Test Item Value Reference Range Interpretation Comments Monocytes # (Auto) (test code = 742-7) 0.4 0.2-0.8 [facility]Eosinophils # (Auto)2017-09-20 06:44:00* Test Item Value Reference Range Interpretation Comments Eosinophils # (Auto) (test code = 711-2) 0.1 0.0-0.4 [facility]Basophils # (Auto)2017-09-20 06:44:00* Test Item Value Reference Range Interpretation Comments Basophils # (Auto) (test code = 704-7) 0.0 0.0-0.1 [facility]ieAbsolute Immature Granulocyte (auto 2017-09-20 06:44:00* Test Item Value Reference Range Interpretation Comments Absolute Immature Granulocyte (auto (srini t code = Absolute Immature Granulocyte (auto) 0.04 0-0.1 [facility]ieCreatine [id number] 01:23:00* Test Item Value Reference Range Interpretation Comments Creatine Kinase (test code = 2157-6) 25 29-168 L [facility]ieCreatine Kinase [id number] 01:23:00* Test Item Value Reference Range Interpretation Comments Creatine Kinase MB (test code = 73347-8) 0.60 0-5.0 [facility]ieTroponin [id number] 01:23:00* Test Item Value Reference Range Interpretation Comments Troponin I (test code = WVL5427) -0.001 0-0.300 [facility]ieB-Type Natriuretic Qycrqrc5799-83-95 12:27:00* Test Item Value Reference Range Interpretation Comments B-Type Natriuretic Peptide (test code = 60516-5) -10.0 0-100 [facility]ieTotal Cnryykiru4809-13-57 12:26:00* Test Item Value Reference Range Interpretation Comments Total Bilirubin (test code = 1975-2) 1.4 0.2-1.2 H [facility]ieAspartate Amino Transf (AST/SGOT) 2017-09-19 12:26:00* Test Item Value Reference Range Interpretation Comments Aspartate Amino Transf (AST/SGOT) (test code = Aspartate Amino Transf (AST/SGOT)) 20 5-34 [facility]ieAlanine Aminotransferase (ALT/SGPT) 2017-09-19 12:26:00* Test Item Value Reference Range Interpretation Comments Alanine Aminotransferase (ALT/SGPT) (test code = 1742-6) 25 0-55 [facility]ieTotal Udfzegx8267-68-53 12:26:00* Test Item Value Reference Range Interpretation Comments Total Protein (test code = 2885-2) 8.0 6.5-8.1 [facility]ieAlbumin2018-05-20 12:26:00* Test Item Value Reference Range Interpretation Comments Albumin (test code = 1751-7) 4.2 3.5-5.0 [facility]ieGlobulin2018-05-20 12:26:00* Test Item Value Reference Range Interpretation Comments Globulin (test code = 08720-2) 3.8 2.3-3.5 H [facility]ieAlbumin/Globulin Sbvhv8735-29-49 12:26:00 * Test Item Value Reference Range Interpretation Comments Albumin/Globulin Ratio (test code = 1759-0) 1.1 0.8-2.0 [facility]ieAlkaline Cgjsvysbpmh6110-01-66 12:26:00* Test Item Value Reference Range Interpretation Comments Alkaline Phosphatase (test code = 6768-6) 119 40-150 [facility]ieProthrombin Nqiu8300-54-59 12:13:00* Test Item Value Reference Range Interpretation Comments Prothrombin Time (test code = 5902-2) 13.0 11.9-14.5 [facility]ieProthromb Time International Ratio 2017-09-19 12:13:00* Test Item Value Reference Range Interpretation Comments Prothromb Time International Ratio (test code = 6301-6) 1.06 Oral Anticoagulant Therapy INR Values:1. Low Intensity Therapy 1.5 - 2.02 . Moderate Intensity Therapy 2.0 - 3.03. High Intensity Therapy(1) 2.5 - 3. 54. High Intensity Therapy(2) 3.0 - 4.05. Panic Value INR > 5.0 [facility]achieActivated Partial Thromboplast Time 2017-09-19 12:13:00* Test Item Value Reference Range Interpretation Comments Activated Partial Thromboplast Time (test code = 22566-9) 27.0 23.8-35.5 [facility] [address] [address] Patient Name : MELISSA LENZ MR #: [id number] : 1955 Age/Sex: 62/F Adm Physi karthikeyan : NÉSTOR PAINTER MD Admit Date : 09/19/17 Location : [facility]/Bed : [address] [address] REPORT: Cardiology Report DATE OF STUDY: September 20, 2017 LEXISCAN NUCLEAR STRESS TEST INDICAT IONS: Chest pain. DESCRIPTION OF PROCEDURE: After informed consent, the justice powell was brought to the stress lab. She was given 10.1 mCi of technetium 9 9 Myoview, and myocardial perfusion SPECT images were obtained in horizontal long and short axis and vertical long axis. Subsequently, the patient was gi sudheer 0.4 mg Lexiscan intravenously. Patient was given 32.2 mCi of technetium 99 Myoview intravenously, and myocardial perfusion SPECT images were obtained in the horizontal long and short axis and vertical long axis. Gated images were also obtained. Patient tolerated the procedure without any complicat ions. REPORT: Baseline EKG shows sinus rhythm at 79 beats per minute, le ft anterior fascicular block, normal intervals, poor R-wave progression V1 to V3, nonspecific ST-T changes. PARAMETERS 1. Resting heart rate is 82 beats per minute. 2. Maximum heart rate is 101 beats per minute. 3. Resting blood pressure 138/67 mmHg. 4. Maximum blood pressure 148/58 mmHg. REASON FOR TERMINATION: Endpoint attained. INTERPRETATION 1. Negative for chest pain. 1. Negative for arrhythmias. 2. Blood pressure response consistent with Lexiscan. 3. No significant ST-T changes seen during Lexiscan infusion compared to baseline. 4. Analysis of SPECT images reveals uniform radioisot ope uptake in all segments of the myocardium without any significant perfusio n defects. CONCLUSION: No evidence of significant ischemia or infarction o n this study. No wall motion abnormalities. Overall ejection fraction is 72 %. Job#: [id number] Signature Date Dictated By: EDWIN LUIS MD Trans cribed By: CHARAN on 10/01/17 <Electronically signed by EDWIN LUIS MD><< Signature on File>>10/06/17 0740 COPY TO: CHEST SINGLE (PORTABLE) [facility] [address] [place] [address] Patient Name: MELISSA LENZ MR #: [id number] : 1 Age/Sex: 62/F Req #: [id number] Adm Physician: Ordered by: EVANS PATEL MD Report #: [id number] Location: ER Room/Be d: Procedure: [id number] DX/CHEST SINGLE (PORTABLE) E xam Date: Exam Time: REPORT STATUS: Signed Portable chest x-ray INDICATION: Pain COMPARISON: None FINDINGS: Frontal view of the chest obtained at 1218 hours. The cardiac silhouette is normal. Mild aortic ectasia. The pulmonary vascular markings are normal. The lungs demonstrate no mass or infiltrate. The costophrenic angles are sharp. There is no pneumothorax. The osseous structures are intact and normal in morphology. IMPRESSION: No acute cardiopulmonary process Signed by: Dr. Winnie Ching MD on 09/19/2017 12:36 PM Dictated By: WINNIE CHING MD 1236 Transcribed By: BOBBY on 09/19/17 1236 COPY TO: EVANS PATEL MD US ABDOMEN COMPLETE [facility] [address] [place] [address] Patient Name: MELISSA LENZ MR #: [id number] : 1955 Age/Sex: 61/F Req #: [id number] Adm Physician: Ordered by: SADIQ BREWSTER MD Report #: [id number] Location: US Room/Bed: Procedure: [id number] US/US ABDOMEN COMPLETE Exam Da te: Exam Time: REPORT STATUS: Signed PROCE DURE: ABDOMINAL ULTRASOUND COMPARISON: None. 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 Liver: 13.6 cm span. Mildly coarse, hyperechoic hep atic parenchyma which may be seen with steatosis or hepatitis. No mass or int rahepatic bile duct dilatation. Main portal vein 1.0 cm, nondilated, normal hepatopetal flow. Spleen: 11.7 cm span, no splenomegaly. Pancreas: Visualized portions unremarkable. Biliary: Surgical absence of the gallbl adder. Common bile duct 0.6 cm, nondilated. Right kidney: 11.0 x 5.4 x 6.2 cm. Normal parenchymal echogenicity. No hydronephrosis or contour deformi ng mass. Left kidney: 10.8 x 6.4 x 5.9 cm. Normal parenchymal echogenicity . No hydronephrosis. There is a hypoechoic 1.5 cm mass, with enhanced thro ugh transmission, at the medial midportion of the left kidney. Visualization is compromised by body habitus, but the appearance is compatible with a cyst. Vessels: Portions of the aorta and IVC are obscured. Visualized portio ns unremarkable. CONCLUSION: 1. No sonographic evidence for acute abdominal pathology. 2. Hyperechoic hepatic parenchyma likely due to stea tosis. The appearance may also reflect the presence of hepatitis. 3. Le ft renal cyst Dictated by: Evans Moscoso M.D. on 01/26/2017 at 8:58 Electronically approved by: Evans Moscoso M.D. on 01/26/2017 at 8:58 Dictated By: EVANS MOSCOSO MD 7 Transcribed By: PATTI on 01/26/17857 COPY TO: SADIQ BREWSTER MD
[2020-03-17] MEDS ORDERED: SODIUM CHLORIDE 0.9% 500ML 500 ML IV ONE (09:45)
[2020-03-17] MEDS ORDERED: MORPHINE SULFATE INJ 4 MG/ML INJ 1ML ONE (09:47)
[2020-03-17 09:55] LABS: COLOR,URINE YELLOW (YELLOW)
[2020-03-17 09:56] LABS: BASOPHILS % 0.4 % (0.0-1.0); BILIRUBIN,URINE NEGATIVE (NEGATIVE); CLARITY,URINE CLEAR (CLEAR); EOSINOPHILS # (AUTO) 0.1 (0.0-0.4); EOSINOPHILS % 2.1 % (0.0-6.0); HEMATOCRIT 38.9 % (34.2-44.1); HEMOGLOBIN 13.1 g/dL (12.0-16.0); KETONES,URINE NEGATIVE (NEGATIVE); LEUKOCYTE ESTERASE ,URINE NEGATIVE (NEGATIVE); LYMPHOCYTES # (AUTO) 1.8 (1.0-3.2); LYMPHOCYTES % 38.2 % (18.0-39.1); MEAN CORPUSCULAR HEMOGLOBIN 29.4 pg (28-32); MEAN CORPUSCULAR HGB CONC 33.7 g/dL (31-35); MEAN CORPUSCULAR VOLUME 87.2 fL (81-99); MONOCYTES # (AUTO) 0.3 (0.2-0.8); NEUTROPHILS # (AUTO) 2.5 (2.1-6.9); NEUTROPHILS % 52.1 % (38.7-80.0); NITRITE,URINE NEGATIVE (NEGATIVE); PLATELET COUNT 128 x10e3/uL (140-360); PROTEIN,URINE DIPSTICK NEGATIVE (NEGATIVE); RED BLOOD COUNT 4.46 x10e6/uL (3.6-5.1); RED CELL DISTRIBUTION WIDTH 12.8 % (11.7-14.4); URINE UROBILINOGEN 0.2 mg/dL (0.2 - 1)
[2020-03-17] MEDS ORDERED: DEXAMETHASONE SOD PHOS 10 MG/1 ML VIAL ONE (09:59)
[2020-03-17] MEDS ORDERED: KETOROLAC TROMETHAMINE 60 MG/2 ML VIAL ONE (09:59)
[2020-03-17 10:03] LABS: INR 0.89; PROTHROMBIN TIME 12.5 seconds (11.9-14.5)
[2020-03-17 10:04] LABS: PARTIAL THROMBOPLASTIN TIME 28.1 seconds (23.8-35.5)
[2020-03-17 10:09] LABS: BACTERIA,URINE FEW /HPF
[2020-03-17 10:10] LABS: EPITHELIAL CELLS,URINE MODERATE /LPF
[2020-03-17 10:11] LABS: ALBUMIN 3.5 g/dL (3.5-5.0); ALBUMIN/GLOBULIN RATIO 0.9 (0.8-2.0); ANION GAP 12.4 mmol/L (8-16); CREATININE, SERUM 1.08 mg/dL (0.57-1.11); POTASSIUM 3.4 mmol/L (3.5-5.1)
[2020-03-17 10:17] LABS: CREATINE KINASE MB 1.1 ng/mL (0-5.0)
--- NOTE | 2020-03-17 10:32 | Emergency Department Note ---
History of Present Illnes History of Present Illness Chief Complaint: Abdominal Complaints History of Present Illness This is a 65 year old female 3 DAYS AGO HER 2 DOGS (FULL GROWN BOXERS) JUMPED ON HER STOMACH. IMMEDIATELY SHE FELT LIKE HER STOMACH SWELLED UP AND SHE BEGAN HAVING A SHARP PAIN. POSITIVE NAUSEA. Historian: Patient Arrival Mode: Car Additional Treatment PROMOTION OFFICER: NONE Hydraulic Riveter Required: No Onset (how long ago): day(s) (3) Location: RIGHT ABDOMEN Quality: PAIN Radiation: Reports non-radiation Severity: moderate Onset quality: sudden Timing of current episode: constant Progression: unchanged Chronicity: new Context: Denies recent illness Relieving factors: none Exacerbating factors: none Associated symptoms: Reports denies other symptoms Past Medical/Family History Physician Review I have reviewed the patient's past medical and family history. Any updates have been documented here. Past Medical History Recent Fever: No Clinical Suspicion of Infectio: No New/Unexplained Change in Ment: No Past Medical History: Hypertension, Diabetes, Hyperlipedemia Other Medical History: HERNIA, NEUROPATHY, DEGENERATIVE DISK, CIRRHOSIS, HEP C Past Surgical History: Cholecysctectomy, Hysterectomy, Tubal Ligation Other Surgery: KIDNEY STONES breast biopsy tumor removed from right breast Social History Smoking Cessation: Unknown if ever smoked Counseling Performed: No Alcohol Use: None Any Illegal Drug Use: No TB Exposure/Symptoms: No Physically hurt or threatened: No Family History Family history of heart diseas: No Other Last Tetanus: UNK Any Pre-Existing Lines (PICC,: No Review of Systems Review of Systems Constitutional: Reports no symptoms EENTM: Reports no symptoms Cardiovascular: Reports no symptoms Respiratory: Reports no symptoms Gastrointestinal: Reports as per HPI Genitourinary: Reports no symptoms Musculoskeletal: Reports no symptoms Integumentary: Reports no symptoms Neurological: Reports no symptoms Psychological: Reports no symptoms Endocrine: Reports no symptoms Hematological/Lymphatic: Reports no symptoms Physical Exam Related Data Allergies: Coded Allergies: hydromorphone (Verified Allergy, Unknown, 03/17/20) iodine (Verified Allergy, Unknown, 07/15/19) Uncoded Allergies: CODIENE (Allergy, Severe, 09/19/17) Triage Vital Signs Vital Signs Date Time Temp Pulse Resp B/P (MAP) Pulse Ox O2 Delivery O2 Flow Rate FiO2 03/17/20 09:20 98.5 77 18 146/71 98 Room Air Vital signs reviewed: Yes Physical Exam CONSTITUTIONAL Constitutional: Present well-developed, Present well-nourished HENT HENT: Present normocephalic, Present atraumatic, Present oropharynx clear/moist, Present nose normal HENT L/R: Present left ext ear normal, Present right ext ear normal EYES Eyes: Reports PERRL, Reports conjunctivae normal NECK Neck: Present ROM normal PULMONARY Pulmonary: Present effort normal, Present breath sounds normal CARDIOVASCULAR Cardiovascular: Present regular rhythm, Present heart sounds normal, Present capillary refill normal, Present normal rate GASTROINTESTINAL Abdominal: Present soft, Present bowel sounds normal, Present tender (MOD TTP RUQ WITHOUT R/G, NO BRUISING ON ABD WALL) GENITOURINARY Genitourinary: Present exam deferred SKIN Skin: Present warm, Present dry MUSCULOSKELETAL Musculoskeletal: Present ROM normal, Present edema (TRACE BILAT LE'S) NEUROLOGICAL Neurological: Present alert, Present oriented x 3, Present no gross motor or sensory deficits PSYCHOLOGICAL Psychological: Present mood/affect normal, Present judgement normal Results Laboratory Result Diagram: 03/17/20 0935 03/17/20 0935 Laboratory Laboratory Tests Test 03/17/20 09:35 White Blood Count 4.74 x10e3/uL (4.8-10.8) Red Blood Count 4.46 x10e6/uL (3.6-5.1) Hemoglobin 13.1 g/dL (12.0-16.0) Hematocrit 38.9 % (34.2-44.1) Mean Corpuscular Volume 87.2 fL (81-99) Mean Corpuscular Hemoglobin 29.4 pg (28-32) Mean Corpuscular Hemoglobin Concent 33.7 g/dL (31-35) Red Cell Distribution Width 12.8 % (11.7-14.4) Platelet Count 128 x10e3/uL (140-360) Neutrophils (%) (Auto) 52.1 % (38.7-80.0) Lymphocytes (%) (Auto) 38.2 % (18.0-39.1) Monocytes (%) (Auto) 7.0 % (4.4-11.3) Eosinophils (%) (Auto) 2.1 % (0.0-6.0) Basophils (%) (Auto) 0.4 % (0.0-1.0) Neutrophils # (Auto) 2.5 (2.1-6.9) Lymphocytes # (Auto) 1.8 (1.0-3.2) Monocytes # (Auto) 0.3 (0.2-0.8) Eosinophils # (Auto) 0.1 (0.0-0.4) Basophils # (Auto) 0.0 (0.0-0.1) Absolute Immature Granulocyte (auto 0.01 x10e3/uL (0-0.1) Prothrombin Time 12.5 seconds (11.9-14.5) Prothromb Time International Ratio 0.89 Activated Partial Thromboplast Time 28.1 seconds (23.8-35.5) Urine Color Yellow (YELLOW) Urine Clarity Clear (CLEAR) Urine pH 6 (5 - 7) Urine Specific [place] >=1.030 (1.010-1.025) Urine Protein Negative (NEGATIVE) Urine Glucose (UA) 500 (NEGATIVE) Urine Ketones Negative (NEGATIVE) Urine Blood Trace (NEGATIVE) Urine Nitrite Negative (NEGATIVE) Urine Bilirubin Negative (NEGATIVE) Urine Urobilinogen 0.2 mg/dL (0.2 - 1) Urine Leukocyte Esterase Negative (NEGATIVE) Urine RBC 6-10 /HPF (0-5) Urine WBC 6-10 /HPF (0-5) Urine Epithelial Cells Moderate /LPF (NONE) Urine Bacteria Few /HPF (NONE) Sodium Level 138 mmol/L (136-145) Potassium Level 3.4 mmol/L (3.5-5.1) Chloride Level 102 mmol/L (98-107) Carbon Dioxide Level 27 mmol/L (22-29) Anion Gap 12.4 mmol/L (8-16) Blood Urea Nitrogen 23 mg/dL (7-26) Creatinine 1.08 mg/dL (0.57-1.11) Estimat Glomerular Filtration Rate 51 ML/MIN (60-) BUN/Creatinine Ratio 21 (6-25) Glucose Level 324 mg/dL (74-118) Calcium Level 10.0 mg/dL (8.4-10.2) Total Bilirubin 0.6 mg/dL (0.2-1.2) Aspartate Amino Transf (AST/SGOT) 24 IU/L (5-34) Alanine Aminotransferase (ALT/SGPT) 31 IU/L (0-55) Alkaline Phosphatase 130 IU/L (40-150) Creatine Kinase 41 IU/L (29-168) Creatine Kinase MB 1.10 ng/mL (0-5.0) Troponin I 0.002 ng/mL (0-0.300) Total Protein 7.3 g/dL (6.5-8.1) Albumin 3.5 g/dL (3.5-5.0) Globulin 3.8 g/dL (2.3-3.5) Albumin/Globulin Ratio 0.9 (0.8-2.0) Amylase Level 66 U/L (25-125) Lipase 82 U/L (8-78) Lab results reviewed: Yes Imaging Imaging results reviewed: Yes Assessment & Plan Medical Decision Making MDM REPORTED HER DOGS JUMPED ON HER, H/O CIRRHOSIS/HEP C, TTP RUQ - CBC, CHEM, JAHAIRA/LIPASE, CARDIACS, PT/PTT, UA, CT ABD/PELVIS (PT ALLERGIC TO IODINE) - R/O TRAUMATIC INJURY, FREE FLUID, COAGULOPATHY, ASCITES, UTI, PANCREATITIS Reassessment Reassessment DC HOME, F/U PCP, RTED PRN, BENTYL/ZOFRAN Assessment & Plan Final Impression: (1) Abdominal pain Depart Disposition: HOME, SELF-CARE Last Vital Signs Date Time Temp Pulse Resp B/P (MAP) Pulse Ox O2 Delivery O2 Flow Rate FiO2 03/17/20 09:20 98.5 77 18 146/71 98 Room Air Home Meds Reported Medications Furosemide (FUROSEMIDE) 40 Mg Tablet, 40 MG PO Daily, #30 TAB 09/20/17 Tramadol Hcl (ULTRAM) 50 Mg Tablet, 50 MG PO Q8H PRN for PAIN, TAB 09/20/17 Metformin Hcl (METFORMIN HCL) 500 Mg Tablet, 1000 MG PO BIDWM, #60 TAB 09/20/17 Esomeprazole Magnesium (NEXIUM) 40 Mg Capsule.dr, DAILY PROTONIX THERAPEUTIC SUBSTITUTE FOR NEXIUM PER [facility] 09/20/17 Hydrochlorothiazide (HYDROCHLOROTHIAZIDE) 25 Mg Tablet, 12.5 MG DAILY, #30 TAB 09/20/17 Enalapril Maleate (VASOTEC) 10 Mg Tablet, 20 BID 09/20/17 Medications in the ED Pantoprazole Sodium 40 mg ONCE IV Last administered on 03/17/20at 09:54; Admin Dose 40 MG; Start 03/17/20 at 09:31; Stop 03/17/20 at 10:59 Morphine Sulfate 2 mg ONCE IV Last administered on 03/17/20at 09:54; Admin Dose 2 MG; Start 03/17/20 at 09:31; Stop 03/17/20 at 10:59 Ondansetron HCl 4 mg ONCE IV Last administered on 03/17/20at 09:54; Admin Dose 4 MG; Start 03/17/20 at 09:31; Stop 03/17/20 at 10:59 Sodium Chloride 500 ml @ 0 mls/hr Q0M ONCE IV Last administered on 03/17/20at 09:54; Admin Dose 500 MLS/HR; Start 03/17/20 at 09:45; Stop 03/17/20 at 09:48; Status DC Morphine Sulfate 4 mg STK-MED ONCE .ROUTE ; Start 03/17/20 at 09:47; Stop 1 05/17/19 at 09:41; Status DC Ketorolac Tromethamine 60 mg STK-MED ONCE .ROUTE ; Start 03/17/20 at 09:59; Stop 03/17/20 at 09:52; Status DC Dexamethasone Sodium Phosphate 10 mg STK-MED ONCE .ROUTE ; Start 03/17/20 at 09:59; Stop 03/17/20 at 09:52; Status DC LUCA JOSEPH MD Mar 17, 2020 10:32
--- NOTE | 2020-03-17 12:26 | Diagnostic Imaging Report ---
EXAM: CT Abdomen and Pelvis WITHOUT contrast INDICATION: H/O CIRRHOSIS, DOG JUMPED ON ABD, TTP RIGHT SIDE COMPARISON: None. TECHNIQUE: Abdomen and pelvis were scanned utilizing a multidetector helical scanner from the lung base to the pubic symphysis without administration of IV contrast. Absence of intravenous contrast decreases sensitivity for detection of focal lesions and vascular pathology. Coronal and sagittal reformations were obtained. Routine protocol was performed. IV CONTRAST: None ORAL CONTRAST: None COMPLICATIONS: None RADIATION DOSE: Total DLP: 796 mGy*cm Estimated effective dose: (DLP x 0.015 x size factor) mSv CTDIvol has been reviewed. It is below the limits set by the Radiation Protocol Committee (RPC). Dose modulation, iterative reconstruction, and/or weight based adjustment of the mA/kV was utilized to reduce the radiation dose to as low as reasonably achievable. FINDINGS: LINES and TUBES: None. LOWER THORAX: Left lower lobe calcified granuloma. There is atherosclerotic calcification of coronary vessels in the partially imaged heart. HEPATOBILIARY: No focal hepatic lesions. No biliary ductal dilation. No CT evidence of cirrhosis. GALLBLADDER: There are cholecystectomy clips. SPLEEN: No splenomegaly. PANCREAS: No focal masses or ductal dilatation. ADRENALS: No adrenal nodules KIDNEYS/URETERS: No hydronephrosis. No cystic or solid mass lesions. No stones. GI TRACT: No abnormal distention, wall thickening, or evidence of bowel obstruction. There are diverticula within the colon without evidence of diverticulitis. Appendix is normal. PELVIC ORGANS/BLADDER: Unremarkable. LYMPH NODES: No lymphadenopathy. VESSELS: There is moderate atherosclerotic disease in the aorta and major arterial branches. PERITONEUM / RETROPERITONEUM: No free air or fluid. BONES: There are degenerative changes in the spine. SOFT TISSUES: Unremarkable. IMPRESSION: No acute abdominopelvic abnormality identified. Signed by: Cassandra Villavicencio MD on 03/17/2020 12:22 PM
== END 2020-03-17 13:21 | disposition home or self-care (01) ==
LOC: ER 09:34
DX: R10.11 Right upper quadrant pain (principal); R11.0 Nausea; I10 Essential (primary) hypertension; E11.65 Type 2 diabetes mellitus with hyperglycemia; E78.5 Hyperlipidemia, unspecified; K74.60 Unspecified cirrhosis of liver; B19.20 Unspecified viral hepatitis C without hepatic coma; Y93.K9 Activity, other involving animal care
CPT/HCPCS: 36415; 74176; 80053; 81001; 82150; 82550; 82553; 83690; 84484; 85025; 85610; 85730; 87086; 99284; C9113; J1100; J1885; J2270; J2405; J7040

== ENCOUNTER 2020-05-28 12:10 | Emergency (ER) | payer OTHER ==
[~2020-05-28] VITALS: Ht 154.9 cm; Wt 92.1 kg
[2020-05-28] MEDS ORDERED: SODIUM CHLORIDE 0.9% 1000ML 1,000 ML IV STA (12:53)
[2020-05-28] MEDS ORDERED: ONDANSETRON HCL INJ 2MG/ML 2ML 2 MG/ML VIAL IV STA (12:53)
[2020-05-28] MEDS ORDERED: DICYCLOMINE HCL 20 MG/2 ML VIAL IM ONE (13:00)
[2020-05-28 13:11] LABS: BASOPHILS % 0.5 % (0.0-1.0); EOSINOPHILS # (AUTO) 0.2 (0.0-0.4); EOSINOPHILS % 3.8 % (0.0-6.0); HEMATOCRIT 37.7 % (34.2-44.1); LYMPHOCYTES # (AUTO) 1.7 (1.0-3.2); LYMPHOCYTES % 31.1 % (18.0-39.1); MEAN CORPUSCULAR HGB CONC 34.5 g/dL (31-35); MEAN CORPUSCULAR VOLUME 86.9 fL (81-99); MONOCYTES # (AUTO) 0.4 (0.2-0.8); MONOCYTES % 6.3 % (4.4-11.3); NEUTROPHILS # (AUTO) 3.2 (2.1-6.9); NEUTROPHILS % 57.9 % (38.7-80.0); PLATELET COUNT 120 x10e3/uL (140-360); RED BLOOD COUNT 4.34 x10e6/uL (3.6-5.1); RED CELL DISTRIBUTION WIDTH 12.5 % (11.7-14.4)
[2020-05-28 13:24] LABS: INR 0.93
[2020-05-28 13:25] LABS: PARTIAL THROMBOPLASTIN TIME 27.6 seconds (23.8-35.5)
[2020-05-28 13:36] LABS: ALBUMIN 3.5 g/dL (3.5-5.0); ALBUMIN/GLOBULIN RATIO 0.9 (0.8-2.0); ANION GAP 12.5 mmol/L (8-16); CALCIUM 10.8 mg/dL (8.4-10.2); CREATININE, SERUM 0.95 mg/dL (0.57-1.11); MAGNESIUM 1.5 MG/DL (1.3-2.1); POTASSIUM 3.5 mmol/L (3.5-5.1)
[2020-05-28 13:37] LABS: CLARITY,URINE CLEAR (CLEAR); COLOR,URINE YELLOW (YELLOW); LEUKOCYTE ESTERASE ,URINE NEGATIVE (NEGATIVE); NITRITE,URINE NEGATIVE (NEGATIVE); PROTEIN,URINE DIPSTICK TRACE (NEGATIVE)
[2020-05-28 13:38] LABS: KETONES,URINE NEGATIVE (NEGATIVE); URINE UROBILINOGEN 0.2 mg/dL (0.2 - 1)
[2020-05-28 13:43] LABS: RBC,URINE 0-5 /HPF (0-5); WBC,URINE (MAN) 0-5 /HPF (0-5)
[2020-05-28 13:43] LABS: CREATINE KINASE MB 1.1 ng/mL (0-5.0)
[2020-05-28 13:44] LABS: BACTERIA,URINE RARE /HPF; EPITHELIAL CELLS,URINE FEW /LPF
[2020-05-28] MEDS ORDERED: DICYCLOMINE HCL20 MG PO (17:20)
[2020-05-28] MEDS ORDERED: ONDANSETRON ODT8 MG PO (17:20)
== END 2020-05-28 17:31 | disposition home or self-care (01) ==
LOC: ER 12:56
DX: R10.31 Right lower quadrant pain (principal); R11.0 Nausea; R19.7 Diarrhea, unspecified; E11.65 Type 2 diabetes mellitus with hyperglycemia; Z11.52 Encounter for screening for COVID-19; I10 Essential (primary) hypertension; E78.5 Hyperlipidemia, unspecified; K74.60 Unspecified cirrhosis of liver; I25.10 Atherosclerotic heart disease of native coronary artery without angina pectoris
CPT/HCPCS: 36415; 74176; 80053; 81001; 82550; 82553; 83690; 83735; 84484; 85025; 85610; 85730; 87086; 99284; J0500; J2405; J7030; U0002